=== PATIENT | male | born 1990 | race Two or more races ===

== ENCOUNTER 2019-06-27 21:44 | Emergency (ER) | payer SELFPAY ==
[~2019-06-27] VITALS: Ht 182.9 cm; Wt 100.0 kg
[2019-06-27 21:50] VITALS: BP 151/71
[2019-06-27] MEDS ORDERED: IBUP-1007 PO (22:07)
[2019-06-27] MEDS ORDERED: AMOX875T PO (22:07)
--- NOTE | 2019-06-27 22:07 | PHYS DOC ---
Past Medical History Past Medical History: No Pertinent History Past Surgical History: No Surgical History Alcohol Use: None Adult General Chief Complaint Chief Complaint: EARACHE/EAR PAIN HPI HPI Patient is a 29 year old male who presents with right ear pain that began a week ago. Patient denies any fever coughing or congestion. Denies any drainage. Rates the pain as moderate and intermittent. No exacerbating or relieving factors. Family member interpreting for tamazight Review of Systems Review of Systems Constitutional: Denies fever or chills [] Eyes: Denies change in visual acuity, redness, or eye pain [] HENT: Reports right ear pain. Denies nasal congestion or sore throat [] Respiratory: Denies cough or shortness of breath [] Cardiovascular: No additional information not addressed in HPI [] GI: Denies abdominal pain, nausea, vomiting, bloody stools or diarrhea [] : Denies dysuria or hematuria [] Musculoskeletal: Denies back pain or joint pain [] Integument: Denies rash or skin lesions [] Neurologic: Denies headache, focal weakness or sensory changes [] All other systems were reviewed and found to be within normal limits, except as documented in this note. Physical Exam Physical Exam Constitutional: Well developed, well nourished, no acute distress, non-toxic appearance. [] HENT: Normocephalic, atraumatic, bilateral external ears normal, oropharynx moist, no oral exudates, nose normal. [] Right ear canal with alot of hair, TM barely seen but appears erythematous. Eyes: PERRLA, EOMI, conjunctiva normal, no discharge. [] Neck: Normal range of motion, no tenderness, supple, no stridor. [] Cardiovascular:Heart rate regular rhythm, no murmur [] Lungs & Thorax: Bilateral breath sounds clear to auscultation [] Abdomen: Bowel sounds normal, soft, no tenderness, no masses, no pulsatile masses. [] Skin: Warm, dry, no erythema, no rash. [] Back: No tenderness, no CVA tenderness. [] Extremities: No tenderness, no cyanosis, no clubbing, ROM intact, no edema. [] Neurologic: Alert and oriented X 3, normal motor function, normal sensory function, no focal deficits noted. [] Psychologic: Affect normal, judgement normal, mood normal. [] Current Patient Data Vital Signs Vital Signs Date Time Temp Pulse Resp B/P (MAP) Pulse Ox O2 Delivery O2 Flow Rate FiO2 06/27/19 21:50 98.3 59 16 151/71 (97) 98 Room Air 98.3 EKG EKG [] Radiology/Procedures Radiology/Procedures [] Course & Med Decision Making Course & Med Decision Making Pertinent Labs and Imaging studies reviewed. (See chart for details) This is a 29-year-old male patient with a right otitis media. Discharged with am oxicillin. Tylenol/Motrin for pain or fever. Dragon Disclaimer Dragon Disclaimer This electronic medical record was generated, in whole or in part, using a voice recognition dictation system. Departure Departure Impression: Primary Impression: Right otitis media Disposition: HOME, SELF-CARE Condition: STABLE Referrals: NO PCP (PCP) TEDDY TARIQ MD follow up in 1-2 weeks Patient Instructions: Otitis Media, Adult, [id number] Additional Instructions: You have right ear infection. Take the prescribed antibiotics until completed. Follow-up with your own doctor in 1-2 weeks Scripts Ibuprofen (IBUPROFEN) 600 Mg Tablet 600 MG PO PRN Q6HRS PRN for INFLAMMATION, #20 TAB Prov: DALTON QUINTANILLA APRN 06/27/19 Amoxicillin (AMOXICILLIN) 875 Mg Tablet 1 TAB PO BID, #20 TAB Prov: DALTON QUINTANILLA APRN 06/27/19 Problem Qualifiers Primary Impression: Right otitis media Otitis media type: other nonsuppurative Chronicity: acute Recurrence: non-recurrent Qualified Codes: H65.191 - Other acute nonsuppurative otitis media, right ear DALTON QUINTANILLA APRN Jun 27, 2019 22:07
== END 2019-06-27 22:13 | disposition home or self-care (01) ==
LOC: ER 21:44
DX: H65.191 Other acute nonsuppurative otitis media, right ear (principal)
CPT/HCPCS: 99283